=== PATIENT | female | born 1980 | race Caucasian/White ===

== ENCOUNTER 2020-03-18 22:51 | Inpatient (IN) | payer OTHER ==
[~2020-03-18] VITALS: Ht 162.6 cm; Wt 78.5 kg
--- NOTE | 2020-03-18 21:00 | NUR ---
ms rn notes spoke to pam celeste (mother) made aware that pts is going to be discharge to [facility] d/t insurance issue .and that she shes aware of it . Addendum: 03/19/20 at 2217 by BRANDON ELMORE RN this note is for 03/19/20
--- NOTE | 2020-03-18 22:53 | NUR ---
ELDA FROM [facility] SENT BY PMD FOR POSTERIOR SCALP WORSENING WOUND. PT AAOX1, CHRONIC TRACH 4L/TRACHE TUBE, O2 SAT 100%. SKIN WARM, NONDIAPHORETIC. PLACE PT ON CARDIAC MONITORING, CONTINUOUS POX. PENDING ER MD YOON.
--- NOTE | 2020-03-18 23:00 | NUR ---
ER MD AT BEDSIDE TO EVAL PT WITH ORDERS RECEIVED. WILL CARRY OUT ORDERS. STARTED SL 18G TO L WRIST.
[2020-03-18] MEDS ORDERED: IV NS 0.9% 1,000 ML BAG IV ONE (23:30)
[2020-03-18] MEDS ORDERED: PIPERACILLIN /TAZOBACTAM 3.375 G in IV D5W 50 ML IV ONE (23:30)
[2020-03-18] MEDS ORDERED: VANCOMYCIN 1 GM in IV D5W 250 ML IV ONE (23:30)
--- NOTE | 2020-03-18 23:30 | NUR ---
COVID SWABS COLLECTED AND SENT TO LAB
[2020-03-18 23:46] LABS: BILIRUBIN,URINE NEGATIVE (NEGATIVE); COLOR,URINE YELLOW (YELLOW); LEUKOCYTE ESTERASE ,URINE NEGATIVE (NEGATIVE); NITRITE, URINE NEGATIVE (NEGATIVE); PROTEIN,URINE NEGATIVE (NEGATIVE); UGLUCOSE NEGATIVE (NEGATIVE); UROBILINOGEN,URINE 0.2 EU/dL (0.2)
[2020-03-19] MEDS ORDERED: IV NS 0.9% 1,000 ML IV ONE
[2020-03-19] MEDS ORDERED: PIPERACILLIN /TAZOBACTAM 3.375 G VIAL IV ONE ×2 (00:05→05:24)
[2020-03-19] MEDS ORDERED: VANCOMYCIN 1 GM VIAL ONE (00:05)
[2020-03-19 00:06] LABS: ALBUMIN 2.6 g/dL (3.4-5.0); BILIRUBIN,DIRECT 0.1 mg/dL (0.0-0.2); BILIRUBIN,TOTAL 0.2 mg/dL (0.2-1.0); CALCIUM, SERUM 9.6 mg/dL (8.5-10.1); CREATININE 0.5 mg/dL (0.6-1.3); POTASSIUM 3.9 mmol/L (3.5-5.1); TOTAL PROTEIN, SERUM 7.7 g/dL (6.4-8.2)
--- NOTE | 2020-03-19 00:08 | NUR ---
PT MEDICATED ORDERED BY ER .
--- NOTE | 2020-03-19 00:14 | NUR ---
CALL FROM LAB. RAPID COVID NEGATIVE.
[2020-03-19 00:27] LABS: BASOPHILS % (AUTO) 0.3 % (0.0-2.0); EOSINOPHILS % (AUTO) 2.5 % (0.0-6.0); HEMATOCRIT 29 % (33-45); HEMOGLOBIN 9.4 g/dL (11.5-14.8); LYMPHOCYTES # (AUTO) 2.5 /CMM (0.8-4.8); LYMPHOCYTES % (AUTO) 28.1 % (20.0-44.0); MEAN CORPUSCULAR HGB CONC 32 g/dl (31.0-36.0); MEAN CORPUSCULAR VOLUME 83 fL (82-100); MONOCYTES # (AUTO) 0.6 /CMM (0.1-1.30); MONOCYTES % (AUTO) 7.2 % (2.0-12.0); NEUTROPHILS # (AUTO) 5.4 /CMM (1.8-8.9); NEUTROPHILS % (AUTO) 61.9 % (43.0-81.0); PLATELET COUNT (AUTO) 498 /CMM (150-450); RED BLOOD CELL COUNT(AUTO) 3.52 MIL/uL (4.0-5.2); WHITE BLOOD COUNT (AUTO) 8.8 K/uL (4.3-11.0)
[2020-03-19 00:45] LABS: BACTERIA,URINE None seen /HPF (None Seen); RBC,URINE 0-2 /HPF (0-2); SQUAMOUS EPITHELIAL CELL,UR Many /HPF (None Seen); URINE AMORPHOUS PHOSPHATES Moderate /HPF (None Seen); WBC,URINE 0-2 /HPF (0-3)
[2020-03-19] MEDS ORDERED: PIPE3.379 IV (01:00)
[2020-03-19] MEDS ORDERED: PANT40TA49 GT (01:00)
[2020-03-19] MEDS ORDERED: DOCU100C36 GT (01:00)
[2020-03-19] MEDS ORDERED: MINE3.5O OP (01:00)
[2020-03-19] MEDS ORDERED: LORA10TA68 GT (01:00)
[2020-03-19] MEDS ORDERED: OLOP2.5D12 LEFTEYE (01:00)
[2020-03-19] MEDS ORDERED: MULT-754 GT (01:00)
[2020-03-19] MEDS ORDERED: BACL20TA GT (01:00)
[2020-03-19] MEDS ORDERED: LEVE100S GT (01:00)
[2020-03-19] MEDS ORDERED: SACC250C GT (01:00)
[2020-03-19] MEDS ORDERED: HYDR-4384 GT (01:00)
[2020-03-19] MEDS ORDERED: ASCO-352 GT (01:00)
[2020-03-19] MEDS ORDERED: APIX5TAB GT (01:00)
[2020-03-19] MEDS ORDERED: METO25TA20 GT (01:00)
[2020-03-19] MEDS ORDERED: PROP15DR EACHEYE (01:00)
[2020-03-19] MEDS ORDERED: ACETAMINOPHEN 325 MG TABLET MC PRN (02:00)
[2020-03-19] MEDS ORDERED: ONDANSETRON HCL/PF 4 MG/2 ML VIAL IV PRN (02:00)
--- NOTE | 2020-03-19 03:32 | NUR ---
PT ASLEEP, NO ACUTE DISTRESS NOTED, RESP EVEN AND UNLABORED. NO PAIN OR DISCOMFORT NOTED. CALL LIGHT WITHIN [facility]. WILL CONTINUE TO MONITOR.
[2020-03-19 04:52] LABS: BASOPHILS # (AUTO) 0.1 /CMM (0.0-0.2); BASOPHILS % (AUTO) 0.8 % (0.0-2.0); EOSINOPHILS % (AUTO) 3.2 % (0.0-6.0); HEMATOCRIT 29 % (33-45); HEMOGLOBIN 9.2 g/dL (11.5-14.8); LYMPHOCYTES # (AUTO) 3.2 /CMM (0.8-4.8); LYMPHOCYTES % (AUTO) 27.9 % (20.0-44.0); MEAN CORPUSCULAR HGB CONC 32 g/dl (31.0-36.0); MEAN CORPUSCULAR VOLUME 85 fL (82-100); MONOCYTES # (AUTO) 0.8 /CMM (0.1-1.30); MONOCYTES % (AUTO) 6.9 % (2.0-12.0); NEUTROPHILS # (AUTO) 6.9 /CMM (1.8-8.9); NEUTROPHILS % (AUTO) 61.2 % (43.0-81.0); PLATELET COUNT (AUTO) 379 /CMM (150-450); RED BLOOD CELL COUNT(AUTO) 3.44 MIL/uL (4.0-5.2); WHITE BLOOD COUNT (AUTO) 11.3 K/uL (4.3-11.0)
[2020-03-19 04:58] LABS: CALCIUM, SERUM 9.3 mg/dL (8.5-10.1); CREATININE 0.5 mg/dL (0.6-1.3); POTASSIUM 3.9 mmol/L (3.5-5.1)
[2020-03-19] MEDS: IV D5/ 0.9% NACL 1,000 ML IV PRN ×2 (05:30→18:01)
[2020-03-19] MEDS ORDERED: PIPERACILLIN /TAZOBACTAM 3.375 G in IV D5W 50 ML IV ONE (06:00)
--- NOTE | 2020-03-19 06:17 | NUR ---
total pt care done, bed linen and gown changed. suctioned pt via trache and orally. repositioned pt for comfort.
--- NOTE | 2020-03-19 07:35 | NUR ---
report given to am shift [facility] gamboa.
[2020-03-19] MEDS ORDERED: VANCOMYCIN 1.25 GM in IV D5W 250 ML IV SCH (08:30)
[2020-03-19] MEDS ORDERED: PANTOPRAZOLE 40 MG VIAL ONE (08:42)
--- NOTE | 2020-03-19 08:45 | NUR ---
PATIENT SEEN AND EXAMINED BY DR. CASTILLO, MADE AWARE OF TACHYCARDIA.
[2020-03-19] MEDS ORDERED: LACT100027 GT (08:49)
[2020-03-19] MEDS ORDERED: PANTOPRAZOLE 40 MG VIAL IV SCH (09:00)
--- NOTE | 2020-03-19 09:00 | NUR ---
PATIENT SEEN AND EVALUATED BY WOUND NURSE SHASHA. APPLIED ABD PAD ON THE BACK OF HEAD AND COVERED WITH HEATHER. GEL FOAM ALSO APPLIED ON SACRAL WOUND AND KAELA. HEELS OFFLOADED. PATIENT TURNED AND REPOSITIONED WELL.
--- NOTE | 2020-03-19 09:22 | NUR ---
WOUND CARE CONSULT: PT PRESENTS WITH POSTERIOR HEAD WOUNDS WHICH ARE UNSTAGEABLE AND STAGE 4 WELL SACRAL SCAR, PRESENT ON ADMISSION. RECOMMEND SURGICAL CONSULT. DR STUART NOTIFIED OF CONSULT REQUEST. DISCUSSED WOUND CARE AND SKIN PROTECTION WITH NURSING STAFF AND Mariela FELIX, SURGICAL Beverly FINCH IN AGREEMENT WITH PLAN OF CARE. Addendum: 03/19/20 at 0923 by SHASHA JOHNSON WNDNU Amended: Links added.
--- NOTE | 2020-03-19 09:26 | NUR ---
PATIENT ON 3LPM VIA T-PIECE WITH SPO2 OF 100%. PATIENT SUCTIONED NEEDED.
[2020-03-19] MEDS ORDERED: DAKINS QUARTER STRENGTH (0.125%) 480 ML BOTTLE TOP SCH (09:30)
[2020-03-19] MEDS ORDERED: Z GUARD REMEDY 2 OZ OINT TP SCH (09:30)
[2020-03-19] MEDS ORDERED: Z GUARD REMEDY 2 OZ OINT TP PRN (09:30)
[2020-03-19] MEDS ORDERED: SILVER NITRATE APPLICATOR 1 EA BOX TP SCH (10:00)
--- NOTE | 2020-03-19 10:20 | NUR ---
CALLED MOTHER KAREN HOOKER BUT NO ANSWER, LEFT A MESSAGE.
[2020-03-19] MEDS ORDERED: SILVER NITRATE APPLICATOR 1 EA BOX TP ONE (10:30)
[2020-03-19] MEDS ORDERED: LIDOCAINE 1%-EPI 1:100,000 20 ML VIAL TP ONE (10:30)
[2020-03-19] MEDS ORDERED: SILVER NITRATE APPLICATOR 1 EA BOX ONE (10:49)
[2020-03-19] MEDS ORDERED: ACETAMINOPHEN 325 MG TABLET ONE (10:50)
--- NOTE | 2020-03-19 11:04 | NUR ---
INFORMED DR. CASTILLO THAT THE PATIENT'S HEART IS CONTINUOUSLY INCREASING UPTO 130-140. GAVE ORDER TO START METOPROLOL 25MG Q12HR FROM HOME MED[facility].
--- NOTE | 2020-03-19 11:04 | NUR ---
KAREN HOOKER MOTHER CALLED BACK AND GAVE CONSENT VIA PHONE, WITNESSED BY ANOTHER RN.
[2020-03-19] MEDS ORDERED: METOPROLOL TARTRATE 25 MG TABLET ONE (11:07)
[2020-03-19] MEDS: METOPROLOL TARTRATE 25 MG TABLET GT SCH ×2 (11:27→21:40)
[2020-03-19] MEDS: PIPERACILLIN /TAZOBACTAM 3.375 G in IV D5W 50 ML IV SCH ×2 (11:28→18:01)
[2020-03-19] MEDS ORDERED: VANCOMYCIN 1 GM in IV D5W 250 ML IV SCH (12:00)
[2020-03-19] MEDS ORDERED: HYDROCODONE/APAP 5/325MG TABLET GT PRN (12:30)
--- NOTE | 2020-03-19 12:43 | NUR ---
[facility] STS PATIENT IS SUPPOSED TO BE DR. YOUNG'S PATIENT. INFORMED RATE QUOTING OPERATOR THAT PATIENT SEEN BY DR. CASTILLO AND HAS BEEN ADMITTED SINCE LAST NIGHT AROUND 1AM.
--- NOTE | 2020-03-19 13:22 | NUR ---
PATIENT TURNED AND REPOSITIONED. NO DISTRESS NOTED. SUCTIONED PRN.
--- NOTE | 2020-03-19 15:39 | NUR ---
received bed 106
--- NOTE | 2020-03-19 15:49 | NUR ---
REPORT GIVEN TO MARIA G DANIELS FOR RUTH.
[2020-03-19 16:00] VITALS: BP 122/61
--- NOTE | 2020-03-19 16:05 | NUR ---
PATIENT TRANSFERRED TO ROOM 106 VIA ACLS PROTOCOL. NO DISTRESS NOTED. NEEDS ATTENDED. PATIENT CURRENTLY ON 3LPM VIA T-PIECE IN STABLE CONDITION. ENDORSED TO MARIA G.
--- NOTE | 2020-03-19 16:15 | NUR ---
RN NOTE RECEIVED PATIENT FROM [facility] BUYERFRANCES RUBIO. PATIENT IS IN BED WITH HOB AT SEMI FOWLERS POSITION. PATIENT IS ON 4L TPIECE TRACH. PATIENT IS AOXO WITH EYE MOVEMENT. GALVEZ CATHETER IN PLACE. SACRAL AND BILATERAL HEEL REDNESS NOTED. BACK OF HEAD WOUND NOTED. GT TUBE IS IN PLACE. LWRIST #[address] PAT[address] AND INTACT. BED IS LOCKED IN THE LOWEST POSITION, CALL YANEZ WITHIN REACH, 3 GUARD RAILS RAISED, AND ALL HOSPITAL SAFETY PRECAUTIONS ARE BEING FOLLOWED. WILL CONTINUE TO MONITOR.
[2020-03-19] MEDS ORDERED: APIXABAN 5 MG TABLET GT SCH (17:00)
[2020-03-19] MEDS ORDERED: LEVETIRACETAM SOL (5 ML) 100 MG/ML UDC GT SCH (17:00)
[2020-03-19] MEDS ORDERED: DOCUSATE SODIUM 100 MG CAPSULE PO SCH (17:00)
--- NOTE | 2020-03-19 18:43 | NUR ---
RN CLOSING NOTE PATIENT IS IN BED WITH HOB AT SEMI FOWLERS POSITION. PATIENT IS ON 4L TPIECE TRACH. PATIENT IS AOXO WITH EYE MOVEMENT. GALVEZ CATHETER IN PLACE. SACRAL AND BILATERAL HEEL REDNESS NOTED. BACK OF HEAD WOUND NOTED. GT TUBE IS IN PLACE. LWRIST #[address] PATENT AND INTACT. BED IS LOCKED IN THE LOWEST POSITION, CALL YANEZ WITHIN REACH, 3 GUARD RAILS RAISED, AND ALL HOSPITAL SAFETY PRECAUTIONS ARE BEING FOLLOWED. WILL ENDORSE TO TAPPER BIT RN.
--- NOTE | 2020-03-19 19:30 | NUR ---
RN NOTES RECEIVED PT IN BED WITH TPIECE TRACH ON 4L SATING AT 100 %. NO DISTRESS NOTED. PT NONVERBAL, OPEN EYES. WOUND DRESSING ON HEAD DRY AND INTACT. GT IN PLACE. GALVEZ CATH INDWELLING WITH CLEAR YELLOW URINE OUTPUT. PT WITH LEFT WRIST G18 AND GALLITO G20 IV. D5NS RUNNING AT 75CC/HR NO SIGNS OF INFILTRATION NOTED. BILATERAL HEEL OFFLOADED WITH PILLOW. ALL SAFETY MEASURES IMPLEMENTED PER PROTOCOL. BED LOCKED IN LOWEST POSITION. SIDE RAILS UP X2.
--- NOTE | 2020-03-19 20:30 | NUR ---
RN NOTE RECEIVED CALL FROM DIRECTOR TOXICOLOGY KETAN FROM [facility]. TO BE TRANSFERRED TO [facility]. CM ARRANGED TRANSPORTATION.
--- NOTE | 2020-03-19 20:32 | NUR ---
RN NOTE CALLED DR. YOUNG REGARDING DISCHARGE. OK TO DISCHARGE PT TO [facility]. AND PER DR YOUNG, DR CASTILLO IS AWARE.
[2020-03-19] MEDS ORDERED: METOPROLOL TARTRATE 25 MG TABLET GT SCH (21:00)
[2020-03-19] MEDS ORDERED: BACLOFEN (10 MG) 10 MG TABLET GT SCH (21:00)
--- NOTE | 2020-03-19 21:20 | NUR ---
RN NOTE GAVE REPORT TO FRANCES LORENZ FROM [facility].
--- NOTE | 2020-03-19 21:30 | NUR ---
ms rn notes spoke to pam celeste (mother) made aware that pts is going to be discharge to [facility] d/t insurance issue .and that she shes aware of it .
[2020-03-19 21:40] VITALS: BP 107/62
[2020-03-19] MEDS ORDERED: LORATADINE 10 MG TABLET GT SCH (22:00)
--- NOTE | 2020-03-19 22:05 | NUR ---
RN NOTE PT PICKED UP 2 [facility], DISCHARGE TO [facility] VIA [facility]. PT LEFT IN STABLE CONDITION. NO RESP. DISTRESS NOTED
== END 2020-03-19 22:10 | disposition short-term general hospital (02) | DRG 853 ==
LOC: ER 22:58 → TRANSITION 03-19 01:34 → MEDSG1 03-19 15:57
PROVIDERS: ADMIT Legal Medicine; ATTEND Legal Medicine
PROC: 0NB00ZZ Excision of Skull, Open Approach (ICD-10-PCS; principal; 2020-03-19)
DX: A41.9 Sepsis, unspecified organism (principal); L89.814 Pressure ulcer of head, stage 4; R53.2 Functional quadriplegia; L03.811 Cellulitis of head [any part, except face]; J96.10 Chronic respiratory failure, unspecified whether with hypoxia or hypercapnia; Z99.11 Dependence on respirator [ventilator] status; G93.1 Anoxic brain damage, not elsewhere classified; Z86.74 Personal history of sudden cardiac arrest; Z93.0 Tracheostomy status; Z93.1 Gastrostomy status; I10 Essential (primary) hypertension; Z20.822 Contact with and (suspected) exposure to COVID-19; R13.10 Dysphagia, unspecified; Z86.711 Personal history of pulmonary embolism; Z86.73 Personal history of transient ischemic attack (TIA), and cerebral infarction without residual deficits
CPT/HCPCS: 31720; 36415; 71045-TC; 80048-TC; 80076-TC; 81001; 83605-TC; 85025-TC; 87040-TC; 87081-TC; 87086-TC; 94799-TC; A6253; A6403; C9113; C9803; G0378; J1953; J2543; J3370; J3490; J7030; J7042; J7060; U0003